=== PATIENT | male | born 1980 | race Caucasian/White ===

== ENCOUNTER 2018-12-02 20:00 | Emergency (ER) | payer OTHER ==
[~2018-12-02] VITALS: Ht 170.2 cm; Wt 102.1 kg
[2018-12-02] MEDS ORDERED: CYCLOBENZAPRINE5 MG PO (22:50)
[2018-12-02] MEDS ORDERED: NORCO 5-325 TA1 EAC1 PO (22:50)
[2018-12-02] MEDS ORDERED: MEDROLDOSEPACK PO (22:50)
[2018-12-02 22:56] VITALS: BP 136/80
== END 2018-12-02 22:57 | disposition home or self-care (01) ==
LOC: M.ERS 20:00
DX: S13.8XXA Sprain of joints and ligaments of other parts of neck, initial encounter (principal); S06.0X0A Concussion without loss of consciousness, initial encounter; V89.2XXA Person injured in unspecified motor-vehicle accident, traffic, initial encounter; Y92.89 Other specified places as the place of occurrence of the external cause; Y93.89 Activity, other specified; Y99.8 Other external cause status

== ENCOUNTER 2021-02-16 21:32 | Emergency (ER) | payer OTHER ==
[~2021-02-16] VITALS: Ht 170.2 cm; Wt 111.1 kg
[~2021-02-16 21:32] MED LIST: CYCLOBENZAPRINE5 MG PO; MEDROLDOSEPACK PO; NORCO 5-325 TA1 EAC1 PO
[2021-02-16 22:13] LABS: ABSOLUTE EOSINOPHILS 0.2 thou/uL (0.0-0.7); ABSOLUTE LYMPHOCYTES 1.2 thou/uL (0.8-5.3); ABSOLUTE MONOCYTES 0.9 thou/uL (0.0-1.2); ABSOLUTE NEUTROPHILS 5.6 thou/uL (1.6-8.1); BASOPHILS 0.5 %; EOSINOPHILS 2.1 %; HEMATOCRIT 45.8 % (42.0-52.0); HEMOGLOBIN 15.2 gm/dL (14.0-18.0); LYMPHOCYTES 14.7 %; MCH 30.7 pg (26.0-34.0); MCHC 33.2 g/dL (28.0-37.0); MCV 92.4 fL (80.0-100.0); MPV 8.4 fl. (7.2-11.1); NUCLEATED RBCS 0 /100WBC; PLATELET COUNT* 276 thou/uL (150-400); POLYS 70.7 %; RBC 4.96 mil/uL (4.50-6.00); RDW-CV 13.1 % (10.5-14.5); WBC 7.9 thou/uL (4.0-11.0)
[2021-02-16 22:19] LABS: CALCIUM 8.1 mg/dL (8.5-10.1); POTASSIUM 3.3 mmol/L (3.5-5.1)
[2021-02-16 22:23] LABS: ALBUMIN 4.1 g/dL (3.4-5.0); MAGNESIUM 2.4 mg/dL (1.8-2.4); TOTAL BILIRUBIN 0.3 mg/dL (<0.1-1.0); TOTAL PROTEIN 7.6 g/dL (6.4-8.2)
[2021-02-17] MEDS ORDERED: ZOFRAN ODT4 MG PO (00:28)
[2021-02-17] MEDS ORDERED: HYDROCODON-ACE1 EAC8 PO (00:28)
[2021-02-17 00:34] VITALS: BP 135/81
== END 2021-02-17 00:35 | disposition home or self-care (01) ==
LOC: M.ERS 21:32
PROVIDERS: Emergency Medicine
DX: R19.7 Diarrhea, unspecified (principal); Z20.822 Contact with and (suspected) exposure to COVID-19